=== PATIENT | male | born 1965 | race Caucasian/White ===

== ENCOUNTER 2024-09-09 20:30 | Emergency (ER) | payer BC, SELFPAY ==
[2024-09-09 20:30] VITALS: BMI 38.0
[2024-09-09 20:46] VITALS: BP 149/102
[2024-09-09 21:12] LABS: % Basophils 0.8 % (0-2); % Eosinophils 2.2 % (0-6); % Immature Granulocytes 0.6 % (0-0.5); % Lymphocytes 12.7 % (20.5-51.1); % Monocytes 11.9 % (1.7-9.3); % Neutrophils 71.8 % (42.2-75.2); Absolute Basophils 0.1 10^3/uL (0-0.2); Absolute Eosinophils 0.2 10^3/uL (0-0.7); Absolute Immature Granulocytes 0.1 10^3/uL (0-0.05); Absolute Monocytes 0.9 10^3/uL (0.1-0.6); Absolute Neutrophils 5.5 10^3/uL (1.4-6.5); Hematocrit 38.3 % (39.0-52.0); Hemoglobin 13.9 g/dL (13.0-18.0); Mean Corp Hgb Conc. 36.3 g/dL (33.0-37.0); Mean Corpuscular Hgb 29.9 pg (27.0-31.0); Mean Corpuscular Volume 82.4 fL (80.0-94.0); Mean Platelet Volume 12.6 fL (7.4-10.4); Nucleated Red Blood Cells % 0 % (-); Platelet Count 157 10^3/uL (130-400); Red Blood Cell Count 4.65 10^6/uL (4.70-6.10); Red Cell Dist. Width 13.5 % (11.5-14.5); White Blood Cell Count 7.7 10^3/uL (4.8-10.8)
[2024-09-09 21:39] LABS: ALT (SGPT) 31 U/L (0-50); AST (SGOT) 29 U/L (17-59); Albumin 4.8 g/dl (3.5-5.0); Alkaline Phosphatase 50 U/L (38-126); Blood Urea Nitrogen 21 mg/dl (9-20); Calcium 9.5 mg/dl (8.4-10.2); Carbon Dioxide 27 mmol/L (22-30); Chloride 99 mmol/L (98-107); Glucose 162 mg/dl (70-99); Potassium 4.6 mmol/L (3.5-5.1); Sodium 136 mmol/L (135-145); Total Bilirubin 0.8 mg/dl (0.2-1.3); Total Protein 7.6 g/dl (6.3-8.2); eGFR > 60.00
[2024-09-09] MEDS: TYLENOL 1000 MG PO (22:39)
[2024-09-10] VITALS: BP 116/83
--- NOTE | 2024-09-10 00:05 | ED.GENMED ---
History of Present Illness
General
Chief Complaint: Fever
Source: patient and spouse
Exam Limitations: none
Time Seen by Provider: 09/09/24 23:30
Nursing documentation reviewed up to this point in time: agreed with
History of Present Illness
History of Present Illness:
Patient is a 58-year-old male who presented with cough cold symptoms, body aches and fever yesterday. Patient was seen by urgent care today and tested positive for flu however sent to the ER for concern for concern for sepsis. Patient reports his
heart rate was elevated which is why they were concerned about sepsis. He received Tylenol in the waiting room prior to my exam at at 22:40.
His temp presently is 99.6
He denies any shortness of breath. He has been drinking fluids. He denies any vomiting.
Review of Systems
Review of Systems
Allergies reviewed?: Yes
Other source history: family
All Other Systems: ROS reviewed and negative except as documented in HPI and ROS
Constitutional: Reports fever, fatigue and chills
EENT: Reports no symptoms
Respiratory: Reports cough; Denies trouble breathing
Cardiac: Reports no symptoms
ABD/GI: Reports no symptoms
: Reports no symptoms
Musculoskeletal: Reports back pain and other (Body aches.)
Skin: Reports no symptoms
Psychiatric: Reports no symptoms
Phy Exam
General Physical Exam
General Presentation: no apparent distress
General age: appears stated age
General Skin: warm and dry
General Habitus: normal
General Mental: alert
General Hydration: appears well hydrated
ENT Exam
ENT Exam: EOMI and neck supple
Cardiovascular Exam
Cardiovascular Exam: tachycardia
Pulmonary Exam
Pulmonary Exam: lungs clear and no respiratory distress
Neurological Exam
Neurological Exam: alert and oriented x3
Musculoskeletal Exam
Musculoskeletal Exam: full ROM
Skin Exam
Skin Exam: normal color and warm/dry
Psychiatric Exam
Psychiatric Exam: normal mood/affect
Course
Orders/Labs/Results
Orders:
Orders
09/09/24 21:01
Complete Blood Count/With Diff Urgent
Comprehensive Metabolic Panel Urgent
09/09/24 22:38
Acetaminophen [Tylenol] 1,000 mg .ROUTE .STK-MED ONE
09/09/24 22:39
Acetaminophen [Tylenol] 1,000 mg PO NOW STA
09/10/24 00:14
0.9% Sodium Chloride 1000 ml [Nss] 1,000 ml IV BOLUS
09/10/24 00:17
Ketorolac [Toradol] 15 mg IV NOW STA
Chest [CR Chest - 2 Views ] Urgent
Comment:
Reason For Exam: cough
09/10/24 00:24
Electrocardiogram (*1) Stat
Reason for Study: Other
Other Reason for Exam: chest pain
EKG- Treatment ONCE
09/10/24 00:46
Electrocardiogram (*1) Urgent
Reason for Study: Tachycardia
EKG- Treatment ONCE
Lactic Acid Urgent
09/10/24 01:45
Oseltamivir Phosphate [Tamiflu] 75 mg PO NOW STA
09/10/24 01:58
Azithromycin [Zithromax] 500 mg .ROUTE .STK-MED ONE
09/10/24 08:00
Azithromycin [Zithromax] 500 mg PO DAILY
Abnormal Lab Results
09/09/24
21:01
RBC 4.65 L 10^6/uL
(4.70-6.10)
Hct 38.3 L %
(39.0-52.0)
MPV 12.6 H fL
(7.4-10.4)
Abs Immat Gran (auto) 0.1 H 10^3/uL
(0-0.05)
Absolute Lymphs (auto) 1.0 L 10^3/uL
(1.2-3.4)
Absolute Monos (auto) 0.9 H 10^3/uL
(0.1-0.6)
Immature Gran % 0.6 H %
(0-0.5)
Lymphocytes % 12.7 L %
(20.5-51.1)
Monocytes % 11.9 H %
(1.7-9.3)
BUN 21 H mg/dl
(9-20)
Glucose 162 H mg/dl
(70-99)
09/09/24 21:01
09/09/24 21:01
Vital Signs
Initial and Last Documented VS:
Initial Vital Signs
Temp Pulse Resp BP Pulse Ox
100.6 F H 128 18 149/102 98
09/09/24 20:46 09/09/24 20:46 09/09/24 20:46 09/09/24 20:46 09/09/24 20:46
Last Documented Vital Signs
Temp Pulse Resp BP Pulse Ox
100.6 F H 110 25 116/83 94
09/09/24 20:46 09/10/24 00:45 09/10/24 00:00 09/10/24 00:00 09/10/24 00:45
Car Changer consulted with Physician
Car Changer consulted with physician?: Yes
Name of Physician Consulted: DR Langford
MDM/Problems Addressed
Differential Diagnosis Includes:
Not limited influenza, pneumonia less likely sepsis
MDM/Problems Addressed:
As documented patient is a 58-year-old male who has had flulike symptoms. Went to urgent care was diagnosed with flu a, negative COVID. He was sent to the ER for evaluation and to rule out sepsis because he had an elevated heart rate. Patient did
present tachycardic here however did have fever. He was medicated for fever heart rate did improve. Patient is nontoxic-appearing he does complain of cough. Case discussed ED physician who reviewed x-ray. X-ray done shows questionable pneumonia
at left base.
Likely viral influenza however difficult to tell if it is possible bacterial pneumonia the patient's labs are normal we will treat with Zithromax
patient is requesting Tamiflu as well.
Patient is nontoxic appearing nonhypoxic, low-grade temp here in the ER
Chronic conditions affecting care:
Diabetes sugar minimally elevated 162 patient did receive fluids
*Radiology
Radiology exam reviewed: preliminary read by ED provider (questionable left base infiltrate )
*Pulse Oximetry
Patient hypoxic: no
*EKG
Interpreted by ED Provider?: Yes
Heart Rate: 113
Rate: tachycardiac
Rhythm: sinus
*[employer] Interpretation
Rate: tachycardiac
Heart Rate: 113
Rhythm: sinus
*Critical Care Note
Total Time (30-74mins, 75-104mins- exclusive of procedures): Not Applicable
ED Attending Note
-
Portions of this chart may have been created with voice recognition software.� Occasional wrong word or��sound alike� substitutions may have occurred due to the inherent limitations of voice recognition software.
Discharge Plan
Departure
Patient Disposition: Home (Routine Discharge)
Date of Disposition: 09/10/24
Time of Disposition: 01:46
Patient with high blood pressure during this ER visit?: Yes
Condition: Fair
Covid-19: Not Applicable
Discharge Problem:
Influenza
Instructions: Fever, Adult (DC), Flu in adults - Discharge instructions, BLOOD PRESSURE
Prescriptions:
New
oseltamivir [Tamiflu] 75 mg capsule
75 mg PO BID 5 Days Qty: 10 0RF
azithromycin [Zithromax] 250 mg tablet
250 mg PO DAILY 4 Days Qty: 4 0RF
Referrals:
Aneudy Robert DO [Family Provider] -
Activity Restrictions/Additional Instructions:
As discussed you were found previously to have influenza at urgent care and on today's x-ray there is concern for possible pneumonia. It is possible that this is viral pneumonia however difficult to rule out bacterial pneumonia. Your labs are
unremarkable.
A prescription for Zithromax will be sent to pharmacy as well as Tamiflu.
You were given first doses of both here in the ER.
Stay well-hydrated.
You may take Tylenol or ibuprofen for fever chills body aches.
Follow-up with your family doctor the next several days for reevaluation
return if any worsening of symptoms
Interventions
Interventions:
*Risk Screen - Suicide Last Done: 09/09/24 20:46
*General Assessment Last Done: 09/09/24 20:46
*Neglect/Abuse Screening Last Done: 09/09/24 20:46
*ED COVID-19 Vaccine History Last Done: 09/09/24 23:42
*Nursing Disposition Last Done: 09/10/24 02:02
ED- Neurological Assessment Last Done: 09/09/24 23:43
ED-Skin Assessment Last Done: 09/09/24 23:43
Discharge Date and Time
Discharge Date/Time: 09/10/24 02:03
Print Language: TAIWANESE
[2024-09-10] MEDS: TORADOL 15 MG IV (00:42)
[2024-09-10] MEDS: NSS 1000 IV (00:42)
[2024-09-10 01:06] LABS: Lactic Acid 0.9 mmol/L (0.7-2.0)
[2024-09-10] MEDS: TAMIFLU 75 MG PO (01:58)
[2024-09-10] MEDS: ZITHROMAX 500 MG PO (01:58)
== END 2024-09-10 02:03 | disposition home or self-care (01) ==
LOC: EMR 20:30
PROVIDERS: Nurse Practitioner; EMERGENCY PHYSICIAN Emergency Medicine; FAMILY PHYSICIAN Family Medicine
DX: J11.1 Influenza due to unidentified influenza virus with other respiratory manifestations (principal)
CPT/HCPCS: 99284; 71046; 80053; 83605; 85025; 93005